=== PATIENT | female | born 1960 | race Caucasian/White ===

== ENCOUNTER → 2020-08-26 06:34 | Outpatient (CLI) | payer OTHER, SELFPAY ==
[2020-08-27 14:53] LABS: SARS-CoV-2 RNA PCR Positive
== END ==
PROVIDERS: PCP Family Medicine; Visit Provider Physician Assistant
DX: U07.1 COVID-19 (principal)
CPT/HCPCS: C9803; U0003; U0005

== ENCOUNTER 2021-07-03 14:33 | Outpatient (CLI) | payer OTHER, SELFPAY ==
--- NOTE | ~2021-07-03 | XR_ITS ---
XR abdomen/kub 1V 07/03/2021 14:54 Indication: Right flank pain Procedure: KUB Comparison: Comparison to multiple prior studies sequentially, with oldest reviewed study dated 06/05. Findings: There are bilateral renal stones. Bowel gas pattern is nonobstructive. There are cholecyste ctomy clips. No acute osseous abnormality. Lung bases are unremarkable. Impression: 1: Bilateral nephrolithiasis. Reviewed, dictated and finalized at location B. Impression: 1: Bilateral nephrolithiasis.
== END 2021-07-03 14:34 | disposition home or self-care (01) ==
LOC: ANHIMG 14:36
PROVIDERS: PCP Family Medicine; Visit Provider Physician Assistant
DX: N20.0 Calculus of kidney (principal); R10.9 Unspecified abdominal pain
CPT/HCPCS: 74018

== ENCOUNTER 2021-07-13 13:54 | Outpatient (CLI) | payer OTHER, SELFPAY ==
--- NOTE | ~2021-07-13 | CT_ITS ---
EXAMINATION: CT abdomen pelvis wo con DATE: 07/13/2021 14:14 INDICATION: Right-sided flank pain TECHNIQUE: Computed tomography (CT) of the abdomen and pelvis was performed without intravenous contr ast. The dose-length product (DLP) was 480.42 mGy-cm. Automated exposure control and iterative recons truction technique were employed. COMPARISON: 06/12/2016 FINDINGS: Minimal dependent atelectasis is present in the lung bases. The heart size is normal. The g allbladder is surgically absent. The liver, spleen, pancreas, and right adrenal gland are normal. The re is chronic enlargement of the left adrenal gland, measuring up to 3.7 cm which is low in attenuati on, consistent with an adenoma. There is an 11 mm stone in the right renal pelvis which causes mild h ydronephrosis. A 5 mm stone is present in a lower pole calyx of the right kidney. There is a [address] one in the left kidney lower pole. No stones are identified in the ureters or bladder. No pathologica lly enlarged abdominal or pelvic lymph nodes are identified. There is no free intraperitoneal gas or evidence of bowel obstruction. There is a fat-containing left inguinal hernia. The appendix is normal . IMPRESSION: 1. 11 mm stone in the right renal pelvis causing mild hydronephrosis. 2. Bilateral nephrolithiasis. Reviewed, dictated and finalized at location B.
== END 2021-07-13 13:55 | disposition home or self-care (01) ==
LOC: ANHIMG 13:59
PROVIDERS: PCP Family Medicine; Visit Provider Nurse Practitioner Adult Health
DX: R10.9 Unspecified abdominal pain (principal); N20.0 Calculus of kidney
CPT/HCPCS: 74176

== ENCOUNTER 2021-07-24 15:37 | Outpatient (CLI) | payer OTHER, SELFPAY ==
--- NOTE | 2021-07-24 15:45 | ECG_ITS ---
Measurements Intervals [place] Rate: 73 P: 64 [place]: 143 QRS: 11 QRSD: 95 T: 27 QT: 365 QTc: 403 Interpretive Statements SINUS RHYTHM INCOMPLETE RIGHT BUNDLE BRANCH BLOCK [90+ ms QRS DURATION, TERMINAL R IN V1/V2, 40+ ms S IN I/aVL/V4/V5/V6] NO PREVIOUS ECG AVAILABLE FOR COMPARISON Electronically Signed On 07-24-2021 16:53:15 CDT by Whitney Rosario M.D.
[2021-07-24 16:06] LABS: INR 0.9; Prothrombin Time 12.2 Seconds (11.1-14.7)
[2021-07-24 16:07] LABS: Anion Gap 8 mmol/L (8-16); Blood Urea Nitrogen 21 mg/dL (7-17); Calcium 10.8 mg/dL (8.4-10.2); Carbon Dioxide 29 mmol/L (22-30); Chloride 102 mmol/L (98-107); Estimated Glomerular Filt Rate 56; Glucose 119 mg/dL (65-110); Partial Thromboplastin Time 21.8 SECONDS (22.3-36.8); Potassium 3.9 mmol/L (3.4-5.0); Sodium 139 mmol/L (137-145)
== END 2021-07-24 15:38 | disposition home or self-care (01) ==
LOC: ANHSURGERY 15:39
PROVIDERS: Anesthesiology; PCP Family Medicine; Visit Provider Urology
DX: Z01.818 Encounter for other preprocedural examination (principal); N20.1 Calculus of ureter; I10 Essential (primary) hypertension; I45.19 Other right bundle-branch block
CPT/HCPCS: 36415; 80048; 85610; 85730; 87086; 93005

== ENCOUNTER 2021-07-27 01:01 | Day surgery (SDC) | payer OTHER, SELFPAY ==
[2021-07-23 15:52] VITALS: BMI 28.6
--- NOTE | 2021-07-23 16:04 | PC.NURSE ---
Report to the Outpatient Waiting Room, entrance under the green pavilion located off [facility], at time 7:30 on date 07/27/21. OR Time: 9:30. - You and your visitor will be asked a series of questions to screen for COVID 19 for your protection. - A mask is required within the hospital. One visitor will be allowed to accompany the patient into the hospital. Patients visitor will be instructed to remain with patient at all times or leave the building. We will allow the visitor to come back to the postoperative area when patient is ready. Preoperative COVID Testing Requirements: No COVID Test needed if: (proof is required; if not received patient will have Rapid Test prior to entry) - Patient has received COVID Vaccine at least 14 days prior to procedure date or - Patient has positive COVID test result within last 90 days of surgery date. COVID Test needed if above criteria is not met Patients may have clear liquids (water, carbonated beverages, clear teas, apple juice) until 3 hours prior to surgery (6:30) with a maximum of 20 ounces. - No food from midnight until time of surgery Take the following medications with a SIP of water the morning of surgery: ATENOLOL, ESCITALOPRAM Medications to discontinue per physician: N/A Date to take last dose: N/A Please no make-up, nail slovenian, hairspray, perfume, deodorant, or body powder the day of surgery. No jewelry (including any body piercings) or valuables the day of surgery, leave them at home. Please take a shower or bath the night before, or the morning of, surgery with an antibacterial soap. Wear comfortable, loose fitting clothing. - Jewelry must be removed prior to entering the operating room. Rings and piercings that are not removed may be cut off. - The hospital will not accept responsibility for valuables. - Please leave all valuables, including medications, at home the day of surgery. If you are going home after surgery, a licensed racing driver must drive you home. - NO public transportation without another adult. - We recommend that an adult stay with you for 24 hours following discharge. - We also recommend that you do not drive, make important decision, drink alcoholic beverages, or take any drugs that were not prescribed by your health care provider for at least 24 hours after your discharge time. Follow any additional instructions given to you from your surgeon. Telephone instructions given to YURI WHITE and asked if any additional questions and then verbalized understanding. Patient advised to call surgeon office or pre surgery nurse liaison [phone] if any additional questions.
[2021-07-27] VITALS (7 sets, daily range): BP systolic 102–129; BP diastolic 53–76; PULSE 61–70; RESP 14–18; TEMP 36.2–36.8; O2SAT 96–100; BMI 28.0
--- NOTE | ~2021-07-27 | XR_ITS ---
EXAMINATION: XR abdomen/kub 1V DATE: 07/27/2021 07:54 INDICATION: Right kidney stone. TECHNIQUE: A supine view of the abdomen on 2 radiographs was obtained. COMPARISON: CT abdomen and pelvis 07/13/2021 FINDINGS: There are no dilated loops of bowel. There is an 11 mm stone in right kidney. There are two 4 mm stones in left kidney. There are phleboliths in the pelvis. IMPRESSION: 1. Bilateral kidney stones. Reviewed, dictated and finalized at location A. IMPRESSION: 1. Bilateral kidney stones.
--- NOTE | 2021-07-27 07:16 | WPDANESEPPF ---
Anes - Initial Pre Proc Eval Procedure: Operation Date: 07/27/21 09:30 Proposed Procedures p Right Extracorporeal Shock Wave Lithotripsy - Dirk Martinez MD Date/Time: 07/27/21 07:16 Surgeon: Dirk Martinez MD Pre Op Diagnosis: right ureteral stone 11mm Patient Data Age: 61 Gender: F Height: 1.65 m Weight: 78.02 kg Allergies Allergy/AdvReac Type Severity Reaction Status Date / Time No Known Allergies Allergy Verified 07/27/21 08:37 Home Medications Medication Instructions Recorded Confirmed Type atenolol 25 mg PO DAILY 07/23/21 07/27/21 History atorvastatin 40 mg PO DAILY 07/23/21 07/23/21 History escitalopram oxalate 20 mg PO DAILY 07/23/21 07/27/21 History hydrochlorothiazide 25 mg PO DAILY 07/23/21 07/23/21 History zolpidem 5 mg PO HS PRN 07/23/21 07/23/21 History Patient hx anesthesia problems: none Family hx anesthesia problems: none Results Review: All pre-operative results and documents have been reviewed as part of the pre-operative evaluation. FORMERLY [facility] Past Medical History Medical History Anxiety HTN (hypertension) Hyperlipidemia Overweight (BMI 25.0-29.9) Smoker Social History Social History Smoking packs per day: 1 Smoking cigarettes per day: 20.0 Years smoked: 30 Smoking pack-years: 30.00 Smoking status: Current every day smoker Tobacco type: cigarettes Alcohol intake: current Drinks per week: 4 Substance use: never Substance use type: does not use Living arrangements: with family Spiritual care concerns: No Anes - Eval Final PreProcedure Day of Procedure 07/27/21 07:16 Patient weight: overweight Heart: regular rate and rhythm Lungs: clear to auscultation and normal air movement Airway: Mallampati scale class II Neurological: alert and oriented Last oral intake: >/= 8 hours ASA classification: III Emergent: no Anesthetic plan: proceed Anesthesia type and monitoring: general LMA Results Review: All pre-operative results and documents have been reviewed as part of the pre-operative evaluation. Informed Consent: The patient's anesthetic plan and its attendant risks and benefits were discussed with the patient/family/POA. Questions were solicited and answers provided to the satisfaction of the patient/family/POA.
[2021-07-27] MEDS: LACTATED RINGERS 1,000 ML 30 ML IV CONT (08:36)
--- NOTE | 2021-07-27 09:37 | WPDHPUPDATE1 ---
History and Physical Update Update Date/Time: 07/27/21 09:37 History and Physical has been reviewed, including an updated exam of the patient. There are NO changes in the patient's condition. Risks, benefits, and alternatives have been discussed and questions answered. Patient agrees to proceed with procedure.
[2021-07-27] MEDS: ceFAZolin 2 GM/D5W 50 ML 2 GM/50 ML BAG IVPB (09:50)
--- NOTE | 2021-07-27 10:27 | W.PM.PROC2 ---
Procedure Note - Detailed Date of Procedure 07/27/21 Pre-op Diagnosis Right renal stone Post-op Diagnosis Same Procedure Performed Right ESWL Surgeon Dirk Martinez MD Anesthesia General Description of Procedure The patient was brought to the operative suite where she was placed in the supine position on the Dornier lithotripsy table. The focal point of the lithotripter was placed at a 1cm right renal calculus. A total of 2500 shocks were delivered at a power setting of 4. There appeared to be good fragmentation of the stone. The patient tolerated the procedure well and was taken to the recovery room in good condition. Drains No Packing No Pathology None sent Complications No immediate complications Condition Stable Disposition PACU
--- NOTE | 2021-07-27 10:46 | SUR.PHASEI ---
1040- slight redness to right flank area. pt without complaints.
== END 2021-07-27 12:03 | disposition home or self-care (01) ==
PROVIDERS: PCP Family Medicine; Visit Provider Urology
PROC: (CPT 50590; principal; 2021-07-27 09:30)
DX: N20.0 Calculus of kidney (principal); I10 Essential (primary) hypertension; E78.5 Hyperlipidemia, unspecified; F41.9 Anxiety disorder, unspecified; F17.210 Nicotine dependence, cigarettes, uncomplicated
CPT/HCPCS: 50590; 74018; J0690; J1100; J2250; J2370; J2405; J2704; J3010; J7120

== ENCOUNTER 2021-08-03 14:51 | Outpatient (CLI) | payer OTHER, SELFPAY ==
--- NOTE | ~2021-08-03 | XR_ITS ---
XR abdomen/kub 1V DATE: 08/03/2021 15:14 INDICATION: Kidney calculus. lithotripsy TECHNIQUE: AP projection, 2 views COMPARISON: July 27, 2021 KUB 07/13/[address] abdomen pelvis FINDINGS: Multiple calcified calculi overlie the lower pole of each kidney. The lower pole left renal calcified calculi appear stable since July 27, 2021. The larger calcified catheters overlying the right renal pelvis on 07/27/2021 is not present; they're l ikely residual lithotripsy fragments of this stone within the lower pole of the right kidney. No ureteral calcified calculus is evident. A few calcified pelvic phleboliths are again noted. Surgical clips, right upper quadrant, consistent with cholecystectomy. The psoas shadows are intact. No visceromegaly is evident. No evidence of bowel obstruction. Abdominal aortic and iliac arterial calcifications. Included skeletal structures are unremarkable. IMPRESSION: Residual calcified calculus fragments in the lower pole the right kidney, likely residual from lithotripsy of large or prior right renal calcified pelvic calculus of 07/27/2021 Stable lower pole left renal calcified calculi Status post cholecystectomy Reviewed, dictated and finalized at Location A. Reviewed, dictated and finalized at location A. IMPRESSION: Residual calcified calculus fragments in the lower pole the right k idney, likely residual from lithotripsy of large or prior right renal calcified pelvic calculus of 07/27/2021 Stable lower pole left renal calcified calculi Status post cholecystectomy
== END 2021-08-03 14:52 | disposition home or self-care (01) ==
LOC: ANHIMG 14:55
PROVIDERS: PCP Family Medicine; Visit Provider Urology
DX: N20.0 Calculus of kidney (principal); I70.0 Atherosclerosis of aorta; Z90.49 Acquired absence of other specified parts of digestive tract
CPT/HCPCS: 74018

== ENCOUNTER 2022-06-18 11:42 | Outpatient (CLI) | payer OTHER, SELFPAY ==
--- NOTE | ~2022-06-18 | MM_ITS ---
EXAMINATION: MM screening laurie BI w [place] HISTORY: Screening mammogram TECHNIQUE: Craniocaudal and mediolateral oblique 3-D tomosynthesis images were obtained and synthetic 2-D images were generated. CAD analysis was submitted and interpreted. COMPARISON: bilateral screening mammogram BREAST PARENCHYMAL COMPOSITION: There are scattered areas of fibroglandular density. FINDINGS: Right breast: Approximately 3 x 5 mm circumscribed mass in the posterior lower inner right breast (cr aniocaudal Tomosynthesis image 28/65; MLO Tomosynthesis image 30/73 Oval circumscribed approximately 6 x 14 mm opacity in the posterior lower inner right breast. Diagnostic right mammogram and right breast ultrasound examination are recommended. Left breast: There is no evidence of suspicious mass, calcification, or architectural distortion to s uggest malignancy in the left breast. There has been no suspicious interval change. IMPRESSION: 1. Lower inner quadrant right breast opacities 2. Diagnostic right mammogram and right breast ultrasound examination are recommended BI-RADS Category 0: Incomplete: Needs additional imaging evaluation. Reviewed, dictated and finalized at location A. ER CUTTER IMPRESSION: 1. Lower inner quadrant right breast opacities 2. Diagnostic right mammogram and right breast ultrasound examination are recom mended BI-RADS Category 0: Incomplete: Needs additional imaging evaluation.
== END 2022-06-18 11:43 | disposition home or self-care (01) ==
LOC: CHSIMG 11:44
PROVIDERS: PCP Physician Assistant; Visit Provider Physician Assistant
DX: Z12.31 Encounter for screening mammogram for malignant neoplasm of breast (principal)
CPT/HCPCS: 77063; 77067